=== PATIENT | male | born 1960 | race Caucasian/White ===

== ENCOUNTER → 2017-01-13 | Day surgery (SDC) | payer BC ==
[~2017-01-13] MED LIST: ALLEGRA180 MG PO; ALLERGY SHOTS; ARTHROTEC 501 TAB.EC PO; B/P med PO; BACLOFEN10 MG PO; ETODOLAC500 MG PO; FAMOTIDINE20 M1 PO; HYDROCODONE/APA1 T16 PO; HYDROGESIC 5/501 CAP PO; IBUPROFEN800 MG PO; LISINOPRIL10 MG PO; LORATADINE PO; MOBIC PO; NABUMETONE PO; NASONEX17 GM; [UNRECOGNIZED DRUG - REMARK] PO
--- NOTE | ~2017-01-13 | OR ---
Unit #: [id number] #: [id number] Patient: CATHERINE GÓMEZ [id number] [address] [address] [id number] O MR#: [id number] NAME: CATHERINE GÓMEZ ROOM: Date of Procedure: 01/13/2017 Admission Date: 01/13/2017 Surgeon: Jovi Silver M.D. : 1960 Attending Physician: Jovi Silver M.D. Referring Physician: Jovi Silver M.D. Primary Care Physician: Devon Barone Aprn OPERATIVE REPORT PREOPERATIVE DIAGNOSES Neck pain; cervical radiculopathy; degenerative cervical disk disease, status post cervical decompression. POSTOPERATIVE DIAGNOSES Neck pain; cervical radiculopathy; degenerative cervical disk disease, status post cervical decompression. PROCEDURE PERFORMED Cervical epidural steroid injection with fluoroscopic guidance for needle localization. INDICATIONS FOR PROCEDURE The patient is a 56-year-old male, who had return of neck and bilateral upper extremity pains over the last month or so due to the previously mentioned diagnosis. He was previously treated with epidural steroid injections in 01/2016 and did well for over 10 months. Based on his good response, pathology, symptomatology, and treatment options, we are going to proceed with a repeat cervical epidural steroid injection today. DESCRIPTION OF PROCEDURE The patient was placed in a seated position. Standard monitors were applied. Sterile prep and drape then of the cervical area was performed. The skin then at the C5 level was localized with 1% lidocaine. An 18-gauge Sapato.rutead needle was then advanced via hanging drop technique and fluoroscopic guidance in toward the epidural space. After confirming proper positioning with fluoroscopy and radiographic contrast, a dose of 80 mg of Depo-Medrol and 2 mL of preservative-free normal saline were deposited. The patient tolerated the procedure otherwise well and was discharged to the recovery room in stable condition. Dictated by... Jovi Silver M.D. LHP/modl TD: 01/13/2017 14:34 JOB #: [id number] CC: [facility] Unit #: [id number] #: [id number] Patient: CATHERINE GÓMEZ OPERATIVE REPORT Page 1 of 1 X Jovi Silver MD X PROCEDURE OPERATIVE NOTE
== END | disposition home or self-care (01) ==
LOC: CCSC 08:09
DX: M50.10 Cervical disc disorder with radiculopathy, unspecified cervical region (principal); I10 Essential (primary) hypertension; M19.90 Unspecified osteoarthritis, unspecified site; K21.9 Gastro-esophageal reflux disease without esophagitis; F41.9 Anxiety disorder, unspecified; Z88.8 Allergy status to other drugs, medicaments and biological substances; Z79.891 Long term (current) use of opiate analgesic; Z98.890 Other specified postprocedural states
CPT/HCPCS: J1040; J2250

== ENCOUNTER → 2017-01-20 | Day surgery (SDC) | payer BC ==
--- NOTE | ~2017-01-20 | OR ---
Unit #: [id number] #: [id number] Patient: CATHERINE GÓMEZ [id number] [address] [address] [id number] O MR#: [id number] NAME: CATHERINE GÓMEZ ROOM: Date of Procedure: 01/20/2017 Admission Date: 01/20/2017 Surgeon: Jovi Silver M.D. : 1960 Attending Physician: Jovi Silver M.D. Primary Care Physician: Devon Barone OPERATIVE REPORT PREOPERATIVE DIAGNOSES Neck pain, cervical radiculopathy, degenerative cervical disk disease, post-cervical decompression. POSTOPERATIVE DIAGNOSES Neck pain, cervical radiculopathy, degenerative cervical disk disease, post-cervical decompression. PROCEDURE PERFORMED Cervical epidural steroid injection with fluoroscopic guidance for needle localization. INDICATIONS FOR PROCEDURE The patient is 56-year-old male, who had return of bilateral upper extremity and neck pain with paresthesia and numbness radiating to his hands, status post extensive decompression of degenerative change. He has done well with epidural steroids on a p.r.n. basis. Last injection was done in series a year ago. Repeat injection done last week, which resulted in a 30% to 40% settling of his symptom complex, not yet back down to the baseline he usually able to achieve with the injections, so we are going to proceed with a second injection today. DESCRIPTION OF PROCEDURE The patient was placed in a seated position. Standard monitors were applied. Sterile prep and drape of the cervical area were performed. The skin then at the C5 level was localized with 1% lidocaine. An 18-gauge Cortexica needle was then advanced via hanging drop technique and fluoroscopic guidance in toward the epidural space. After confirming proper positioning with fluoroscopy and radiographic contrast, 80 mg of Depo-Medrol and 2 mL of preservative-free normal saline were deposited. The patient tolerated the procedure otherwise well and was discharged to the recovery room in stable condition. Dictated by... Jovi Silver M.D. LHP/modl TD: 01/20/2017 13:14 JOB #: [id number] Unit #: [id number] #: [id number] Patient: CATHERINE GÓMEZ OPERATIVE REPORT Page 1 of 1 X Jovi Silver MD X PROCEDURE OPERATIVE NOTE
== END | disposition home or self-care (01) ==
LOC: CCSC 08:12
DX: M50.10 Cervical disc disorder with radiculopathy, unspecified cervical region (principal); I10 Essential (primary) hypertension; M19.90 Unspecified osteoarthritis, unspecified site; K21.9 Gastro-esophageal reflux disease without esophagitis; Z88.5 Allergy status to narcotic agent; Z79.891 Long term (current) use of opiate analgesic; Z79.899 Other long term (current) drug therapy; Z98.890 Other specified postprocedural states
CPT/HCPCS: J1040; J2250

== ENCOUNTER → 2017-01-27 | Day surgery (SDC) | payer BC ==
--- NOTE | ~2017-01-27 | OR ---
Unit #: [id number] #: [id number] Patient: CATHERINE GÓMEZ [id number] [address] [place], [place] [address] [id number] O MR#: [id number] NAME: CATHERINE GÓMEZ ROOM: Date of Procedure: 01/27/2017 Admission Date: 01/27/2017 Surgeon: Jovi Silver M.D. : 1960 Attending Physician: Jovi Silver M.D. Primary Care Physician: Devon Barone Aprn OPERATIVE REPORT PREOPERATIVE DIAGNOSES Neck pain, cervical radiculopathy, degenerative cervical disk disease. POSTOPERATIVE DIAGNOSES Neck pain, cervical radiculopathy, degenerative cervical disk disease. PROCEDURE PERFORMED Cervical epidural steroid injection with fluoroscopic guidance for needle localization. INDICATIONS FOR PROCEDURE The patient is a 56-year-old male with return of neck and bilateral upper extremity pain, paresthesia, numbness radiating to his hands. He is status post extensive posterior cervical decompression. He has also degenerative change remains. He is treated medically with p.r.n. epidural steroid injections. Last injection was done about a year ago. He had resurgence of the pain. He had 2 injections done over the last month that decreases his pain from 8 to 2-3/10. It is not back to baseline what has able to achieve with a full series of injections in the last week, so request to proceed with a final injection today. DESCRIPTION OF PROCEDURE The patient was placed in a seated position. Standard monitors were applied. Sterile prep and drape of the cervical area were performed. The skin then at the C5-C6 level was localized with 1% lidocaine. An 18-gauge Vinylminttead needle was then advanced via hanging drop technique and fluoroscopic guidance in toward the epidural space. After confirming proper positioning with fluoroscopy and radiographic contrast, 80 mg of Depo-Medrol and 2 mL of preservative-free normal saline were deposited. The patient tolerated the procedure well and was discharged to recovery room in stable condition. Dictated by... Jovi Silver M.D. LHP/modl TD: 01/27/2017 16:13 JOB #: [id number] Unit #: [id number] #: [id number] Patient: CATHERINE GÓMEZ OPERATIVE REPORT Page 1 of 1 X Jovi Silver MD X PROCEDURE OPERATIVE NOTE
== END | disposition home or self-care (01) ==
LOC: CCSC 08:16
DX: M50.10 Cervical disc disorder with radiculopathy, unspecified cervical region (principal); I10 Essential (primary) hypertension; K21.9 Gastro-esophageal reflux disease without esophagitis; M19.90 Unspecified osteoarthritis, unspecified site; Z88.8 Allergy status to other drugs, medicaments and biological substances; Z79.891 Long term (current) use of opiate analgesic; Z79.1 Long term (current) use of non-steroidal anti-inflammatories (NSAID); Z79.899 Other long term (current) drug therapy
CPT/HCPCS: J1040; J2250